=== PATIENT | female | born 2000 | race African-American/Black ===

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

== ENCOUNTER 2020-01-07 20:59 | Emergency (ER) | payer SELFPAY | END 2020-01-07 22:12 | disposition home or self-care (01) | LOC: ERS 20:59 | DX: L50.9 Urticaria, unspecified (principal) | CPT/HCPCS: 99281 ==

== ENCOUNTER 2020-06-21 10:59 | Emergency (ER) | payer BC, SELFPAY ==
--- NOTE | 2020-06-21 12:27 | RAD ---
AP CHEST: HISTORY: Cough. COMPARISON: 10/24/2018. FINDINGS: The lungs are clear. No infiltrate identified. Heart and mediastinum appear normal. IMPRESSION: No acute finding. POS: [facility]
== END 2020-06-21 12:32 | disposition home or self-care (01) ==
LOC: ERS 10:59
DX: J20.9 Acute bronchitis, unspecified (principal); F17.290 Nicotine dependence, other tobacco product, uncomplicated
CPT/HCPCS: 71045; 87081; 87430; 87804

== ENCOUNTER 2020-07-24 21:01 | Emergency (ER) | payer BC ==
[2020-07-24 22:07] LABS: Bilirubin Negative (Negative); Blood, Urine Negative (Negative); Clarity Turbid (Clear); Glucose, Urine (Dipstick) Normal (Negative); Ketone, Urine Negative (Negative); Leukocyte Negative Leu/uL (Negative); Nitrite Negative (Negative); Protein, Urine (Dipstick) 20 mg/dL (Neg-Trace); Specific Gravity, Urine 1.029 (1.002-1.036); pH, Urine 7.5 (5.0-9.0)
[2020-07-24 22:07] LABS: #Lymphocytes 2.2 thou/uL (1.20-3.40); #Monocytes 0.7 thou/uL (0.11-0.59); #Neutrophils 3.9 thou/uL (1.40-6.50); %Basophils 0.4 % (0.0-1.0); %Eosinophils 0.6 % (0.0-10.0); %Lymphocytes 31.9 % (28.0-48.0); %Monocytes 10.5 % (0.0-4.0); %Neutrophils 56.6 % (31.0-61.0); Hemoglobin 13.3 g/dL (12.0-16.0); Mean Corpuscular HGB CONC 32.8 g/dL (32.0-36.0); Mean Corpuscular Hemoglobin 30.7 pg (25.0-35.0); Mean Corpuscular Volume 93.6 fL (78.0-98.0); Mean Platelet Volume 8.3 fL (7.4-10.4); Platelet Count 214 thou/uL (130-400); RBC Distribution Width 11.7 % (11.5-14.5); Red Blood Cell (RBC) Count 4.32 mill/uL (4.00-5.20); White Blood Cell (WBC) Count 6.9 thou/uL (4.8-10.8)
[2020-07-24 22:13] LABS: Pregnancy Test - Urine (BHCG) Negative (Negative); Pregu Control Bar Appear? YES (CONTROL BAR); Specific Gravity 1.029 (1.002-1.036)
[2020-07-24 22:14] LABS: Pregu Control Background? CLEAR/WHITE (CLR/WHITE)
[2020-07-24 22:36] LABS: ALT (SGPT) 12 U/L (8-55); AST (SGOT) 14 U/L (5-34); Albumin 4.4 g/dL (3.5-5.0); Alkaline Phosphatase 91 U/L (40-100); Anion Gap 14 mmol/L (10-20); BUN (Urea Nitrogen) 14 mg/dL (7.0-18.7); Bilirubin, Total 0.2 mg/dL (0.2-1.2); Calc. Creatinine Clearance 0 mL/min (70-130); Calcium 9.3 mg/dL (7.8-10.44); Carbon Dioxide 26 mmol/L (22-29); Chloride 103 mmol/L (98-107); Lipase 21 U/L (8-78); Potassium 3.9 mmol/L (3.5-5.1); Protein, Total 7.4 g/dL (6.0-8.3); Sodium 139 mmol/L (136-145)
[2020-07-24 23:14] LABS: Glucose 90 mg/dL (70-105)
== END 2020-07-24 22:35 | disposition home or self-care (01) ==
LOC: ERS 21:01
DX: R10.9 Unspecified abdominal pain (principal); R11.2 Nausea with vomiting, unspecified; F17.290 Nicotine dependence, other tobacco product, uncomplicated
CPT/HCPCS: 36415; 80053; 81003; 81025; 83690; 85025; 99284

== ENCOUNTER 2020-08-07 17:20 | Emergency (ER) | payer BC | END 2020-08-07 19:28 | disposition home or self-care (01) | LOC: ERS 17:20 | DX: R53.81 Other malaise (principal); Z20.822 Contact with and (suspected) exposure to COVID-19; F17.290 Nicotine dependence, other tobacco product, uncomplicated | CPT/HCPCS: 99283 ==

== ENCOUNTER 2020-08-27 07:35 | Emergency (ER) | payer BC ==
[2020-08-27] MEDS ORDERED: Acetaminophen 325 MG TAB ONE (08:00)
[2020-08-27] MEDS ORDERED: Ketorolac Tromethamine 30 MG/ML VIAL ONE (08:00)
== END 2020-08-27 08:24 | disposition home or self-care (01) ==
LOC: ERS 07:35
DX: H66.91 Otitis media, unspecified, right ear (principal); F17.290 Nicotine dependence, other tobacco product, uncomplicated
CPT/HCPCS: 96372; 99282; J1885

== ENCOUNTER 2020-10-01 00:17 | Emergency (ER) | payer BC ==
[2020-10-01] MEDS ORDERED: Ondansetron ODT 4 MG TAB ONE (00:46)
[2020-10-01] MEDS ORDERED: Acetaminophen 500 MG TAB ONE (00:46)
[2020-10-01 00:50] LABS: Pregnancy Test - Urine (BHCG) Negative (Negative); Pregu Control Background? CLEAR/WHITE (CLR/WHITE); Pregu Control Bar Appear? YES (CONTROL BAR)
[2020-10-01 00:52] LABS: Bilirubin Negative (Negative); Blood, Urine Negative (Negative); Clarity Clear (Clear); Glucose, Urine (Dipstick) Normal (Negative); Ketone, Urine Negative (Negative); Leukocyte Negative Leu/uL (Negative); Nitrite Negative (Negative); Protein, Urine (Dipstick) Negative (Neg-Trace); Specific Gravity, Urine 1.006 (1.002-1.036); Urobilinogen Normal mg/dL (Less than 2)
[2020-10-01 00:54] LABS: Specific Gravity 1.006 (1.002-1.036)
== END 2020-10-01 02:22 | disposition home or self-care (01) ==
LOC: ERS 00:17
DX: R19.7 Diarrhea, unspecified (principal); R11.2 Nausea with vomiting, unspecified; R50.9 Fever, unspecified; F17.290 Nicotine dependence, other tobacco product, uncomplicated
CPT/HCPCS: 81003; 81025; 99284; Q0162